=== PATIENT | female | born 1950 | race Caucasian/White ===

== ENCOUNTER 2019-06-23 13:20 | Outpatient (CLI) | payer OTHER, SELFPAY ==
--- NOTE | ~2019-06-23 | MR_ITS ---
EXAMINATION: MR cervical spine wo con EXAM DATE: 06/23/2019 15:07 INDICATION: Cervicalgia. Neck pain. TECHNIQUE: Multi-sequential, multiplanar MR images of the cervical spine were obtained without contra st. Axial T2, axial T2 MERGE sequence. Sagittal T1, T2, T2 fat saturation images also obtained. Th ere is no prior study for comparison. FINDINGS: There is moderate to severe loss of the C5-6 and 6-7 disc heights, moderate at C4-5 and mi ld to moderate at C3-4 and C7-T1. There is mild reversal of the normal cervical lordosis which may be positional or spasm. There is about 2 mm retrolisthesis C5 on C6, 2 mm anterolisthesis C3 on C4. Th e spinal cord signal intensity and intrinsic morphology is normal. Cervicomedullary junction is david l in appearance. Paraspinal soft tissue is unremarkable. Level by level evaluation: C2-C3: Disc does not extend beyond the endplate margin. Uncovertebral joint arthropathy: Mild to moderate right. Facet joint arthropathy: None. Neural foraminal stenosis: No stenosis. Central canal stenosis: No stenosis. C3-C4: There is a minimal diffuse disc bulge. Uncovertebral joint arthropathy: Mild bilateral. Facet joint arthropathy: Moderate bilateral. Neural foraminal stenosis: No stenosis. Central canal stenosis: No stenosis. C4-C5: There is a minimal diffuse disc bulge. Uncovertebral joint arthropathy: Mild bilateral. Facet joint arthropathy: Moderate bilateral. Neural foraminal stenosis: Mild left. Central canal stenosis: No stenosis. C5-C6: There is a mild diffuse disc bulge. Uncovertebral joint arthropathy: Moderate bilateral. Facet joint arthropathy: Mild to moderate bilateral. Neural foraminal stenosis: Moderate to severe left, moderate right. Central canal stenosis: Mild. C6-C7: There is a mild diffuse disc bulge. Uncovertebral joint arthropathy: Mild to moderate bilateral. Facet joint arthropathy: Mild bilateral. Neural foraminal stenosis: Mild to moderate bilateral. Central canal stenosis: Mild. C7-T1: Disc does not extend beyond the endplate margin. Uncovertebral joint arthropathy: Mild left. Facet joint arthropathy: Mild to moderate bilateral. Neural foraminal stenosis: No stenosis. Central canal stenosis: No stenosis. IMPRESSION: 1. Overall moderate cervical spondylosis with the C5-6 neural foramen most narrowed on exam. Reviewed, dictated and finalized at location A. IMPRESSION: 1. Overall moderate cervical spondylosis with the C5-6 neural foramen most rima rowed on exam.
== END 2019-06-23 13:21 | disposition home or self-care (01) ==
PROVIDERS: PCP Family Medicine Adolescent Medicine; Visit Provider Family Medicine Adolescent Medicine
DX: M47.812 Spondylosis without myelopathy or radiculopathy, cervical region (principal)
CPT/HCPCS: 72141

== ENCOUNTER 2019-08-15 10:50 | Outpatient (CLI) | payer OTHER, SELFPAY ==
--- NOTE | ~2019-08-15 | CT_ITS ---
EXAMINATION: CT abdomen pelvis w con DATE: 08/15/2019 15:57 INDICATION: Left lower quadrant pain TECHNIQUE: Computed tomography (CT) of the abdomen and pelvis was performed with 100 cc Omnipaque 350 intravenous contrast. The dose-length product was 262.22 mGy-cm. Automated exposure control and iter ative reconstruction technique were employed. COMPARISON: Comparison to multiple prior studies sequentially, with oldest reviewed study dated 04/29. FINDINGS: Lung bases unremarkable. Heart size normal. No significant pleural or pericardial effusion. No significant vascular abnormality. No lymphadenopathy. Stable multiple hypodense masses of the spl een without significant change. Status post cholecystectomy. Small subcentimeter hypodensity right he patic lobe, most likely cysts. The pancreas, adrenal glands and kidneys are unremarkable. Colonic div erticulosis without diverticulitis. No bowel obstruction. No significant vascular abnormality. No herve e air or free fluid. No evidence for diverticulitis. There are dilated parametrial vessels, suspiciou s for pelvic congestion syndrome. IMPRESSION: 1. Dilated parametrial vessels, suspicious for pelvic congestion syndrome. 2: Multiple stable hypodense masses of the spleen without significant change dating back to 04/29/2015 , likely benign. Reviewed, dictated and finalized at location A. IMPRESSION: 1. Dilated parametrial vessels, suspicious for pelvic congestion syndrome. 2: Multiple stable hypodense masses of the spleen without significant change da ting back to 04/29/2015, likely benign.
[2019-08-15 11:14] LABS: Hematocrit 44.3 % (37.0-47.0); Hemoglobin 14.5 g/dL (12.0-15.0); Mean Corpuscular HGB Conc 32.7 g/dl (32-36); Mean Corpuscular Hemoglobin 30.2 pg (26-34); Mean Corpuscular Volume 92.3 fl (80-100); Mean Platelet Volume 8.5 fl (7.4-10.4); Platelet Count Result 318 k/mm3 (150-375); Red Cell Distribution Width 12.6 % (11.5-14.5); White Blood Count 9.7 K/mm3 (4.5-10.0)
[2019-08-15 11:30] LABS: Alanine Aminotransferase 33 U/L (4-35); Albumin Level 4.6 g/dL (3.5-5.1); Alkaline Phosphatase 76 U/L (38-126); Aspartate Amino Transferase 35 U/L (14-36); Bilirubin,Total 0.6 mg/dL (0.2-1.3); Blood Urea Nitrogen 11 mg/dL (7-17); Calcium 9.4 mg/dL (8.4-10.2); Carbon Dioxide 29 mmol/L (22-30); Chloride 102 mmol/L (98-107); Estimated Glomerular Filt Rate > 60; Glucose 113 mg/dL (65-105); Potassium 4.1 mmol/L (3.4-5.0); Sodium 138 mmol/L (137-145)
== END 2019-08-15 10:51 | disposition home or self-care (01) ==
PROVIDERS: PCP Family Medicine Adolescent Medicine; Visit Provider Internal Medicine Gastroenterology
DX: R10.13 Epigastric pain (principal); D73.9 Disease of spleen, unspecified; R93.5 Abnormal findings on diagnostic imaging of other abdominal regions, including retroperitoneum
CPT/HCPCS: 36415; 74177; 80053; 85027; Q9967

== ENCOUNTER 2020-04-03 14:48 | Outpatient (CLI) | payer OTHER, SELFPAY ==
--- NOTE | ~2020-04-03 | MM_ITS ---
EXAMINATION: MM screening [facility] BI w eryn HISTORY: Screening mammogram TECHNIQUE: Craniocaudal and mediolateral oblique 3-D tomosynthesis images were obtained and synthetic 2-D images were generated. CAD analysis was submitted and interpreted. COMPARISON: 02/22/2019, 02/20/2018, 02/17/2017 BREAST PARENCHYMAL COMPOSITION: There are scattered areas of fibroglandular density. FINDINGS: There is cyst of the lower inner right breast. There is no evidence of suspicious mass, pito cification, or architectural distortion to suggest malignancy in either breast. There has been no juan picious interval change. IMPRESSION: 1. No mammographic evidence of malignancy. 2. Recommend routine screening mammography in one year. BI-RADS Category 2: Benign finding(s). Reviewed, dictated and finalized at location A. METRY TECHNICIAN
== END 2020-04-03 14:49 | disposition home or self-care (01) ==
LOC: ANHIMG 14:55
PROVIDERS: PCP Family Medicine Adolescent Medicine; Visit Provider Family Medicine Adolescent Medicine
DX: Z12.31 Encounter for screening mammogram for malignant neoplasm of breast (principal)
CPT/HCPCS: 77063; 77067

== ENCOUNTER → 2020-06-29 03:08 | Outpatient (CLI) | payer OTHER, SELFPAY ==
[2020-06-29 21:05] LABS: SARS-CoV-2 RNA PCR Negative
== END ==
PROVIDERS: PCP Family Medicine Adolescent Medicine; Visit Provider Internal Medicine Gastroenterology
DX: Z01.812 Encounter for preprocedural laboratory examination (principal); Z20.822 Contact with and (suspected) exposure to COVID-19
CPT/HCPCS: C9803; U0003; U0005

== ENCOUNTER 2020-07-02 01:33 | Day surgery (SDC) | payer OTHER, SELFPAY ==
[2020-06-29 09:06] VITALS: BMI 22.6
[2020-07-02 11:20] VITALS: BP 124/69; PULSE 77; RESP 16; TEMP 36.5; O2SAT 95
[2020-07-02] MEDS: LACTATED RINGERS 1,000 ML 150 ML IV CONT (11:33)
--- NOTE | 2020-07-02 12:42 | WPDANESEPPF ---
Anes - Initial Pre Proc Eval Procedure: Operation Date: 07/02/20 12:45 Proposed Procedures p Esophagogastroduodenoscopy - Ken Clement MD Date/Time: 07/02/20 12:42 Surgeon: Ken Clement MD Pre Op Diagnosis: Epigastric pain Patient Data Age: 69 Gender: F Height: 5 ft 4 in Weight: 59.7 kg Last Vital Signs Temp 97.7 F 07/02/20 11:20 Pulse 77 07/02/20 11:20 Resp 16 07/02/20 11:20 BP 124/69 07/02/20 11:20 Pulse Ox 95 07/02/20 11:20 Allergies Allergy/AdvReac Type Severity Reaction Status Date / Time No Known Drug Allergies Allergy Unknown Unknown Verified 07/02/20 11:19 BEE STING Allergy Severe SHOCK Uncoded 06/12/20 13:11 Home Medications Medication Instructions Recorded Confirmed Type atorvastatin 20 mg tablet 20 mg PO DAILY 06/12/20 06/29/20 History sucralfate 1 gram tablet 1 g PO TID 30 Days #90 tablet 06/12/20 06/29/20 Rx zolpidem 5 mg tablet 5 mg PO QHS PRN 06/12/20 06/29/20 History hyoscyamine sulfate 0.375 mg PO DAILY 06/29/20 06/29/20 History pantoprazole 40 mg PO DAILY 06/29/20 06/29/20 History Patient hx anesthesia problems: none Family hx anesthesia problems: none PMFSH Past Medical History Medical History (Updated 07/02/20 @ 12:35 by Robert Aragon MD) Hyperlipidemia Family History Family History Mother Carcinoma of colon Family history of malignant neoplasm Father Asthma Social History Social History (Updated 06/12/20 @ 13:11 by Analia Ca CMA) Smoking status: Never smoker Alcohol intake: never Substance use: never Substance use type: does not use Living arrangements: with family Gender identity (if verbalized by the patient): Female Spiritual care concerns: No Anes - Eval Final PreProcedure Day of Procedure 07/02/20 12:42 Patient weight: normal Heart: regular rate and rhythm Lungs: clear to auscultation Airway: Mallampati scale class II Neurological: alert and oriented Last oral intake: >/= 8 hours ASA classification: II Emergent: no Anesthetic plan: proceed Anesthesia type and monitoring: general GIVS and standard monitoring Informed Consent: The patient's anesthetic plan and its attendant risks and benefits were discussed with the patient/family/POA. Questions were solicited and answers provided to the satisfaction of the patient/family/POA.
--- NOTE | 2020-07-02 13:14 | WPDHPUPDATE1 ---
History and Physical Update Update Date/Time: 07/02/20 13:14 History and Physical has been reviewed, including an updated exam of the patient. There are NO changes in the patient's condition. Risks, benefits, and alternatives have been discussed and questions answered. Patient agrees to proceed with procedure.
[2020-07-02 13:24] VITALS: BP 77/43; PULSE 64; RESP 18; O2SAT 96
[2020-07-02 13:30] VITALS: BP 92/57; PULSE 72; RESP 18; O2SAT 96
[2020-07-02 13:34] VITALS: BP 100/59; PULSE 72; RESP 18; O2SAT 100
[2020-07-02 13:44] VITALS: BP 100/60; PULSE 64; RESP 18; O2SAT 100
== END 2020-07-02 13:55 | disposition home or self-care (01) ==
PROVIDERS: PCP Family Medicine Adolescent Medicine; Visit Provider Internal Medicine Gastroenterology
PROC: 0DJ08ZZ Inspection of Upper Intestinal Tract, Via Natural or Artificial Opening Endoscopic (ICD-10-PCS; CPT 43235; principal; 2020-07-02 12:45)
DX: K21.9 Gastro-esophageal reflux disease without esophagitis (principal); K29.50 Unspecified chronic gastritis without bleeding; E78.5 Hyperlipidemia, unspecified
CPT/HCPCS: 43239; 88305; C9803; J2704; J7120; U0003; U0005

== ENCOUNTER → 2020-08-28 03:51 | Outpatient (CLI) | payer OTHER, SELFPAY ==
[2020-08-28 19:36] LABS: SARS-CoV-2 RNA PCR Negative
== END ==
PROVIDERS: PCP Family Medicine Adolescent Medicine; Visit Provider Internal Medicine Gastroenterology
DX: Z20.822 Contact with and (suspected) exposure to COVID-19 (principal)
CPT/HCPCS: C9803; U0003; U0005

== ENCOUNTER 2020-08-31 01:46 | Day surgery (SDC) | payer OTHER, SELFPAY ==
[2020-08-18 13:49] VITALS: BMI 22.3
[2020-08-31 11:39] VITALS: BP 126/78; PULSE 84; RESP 18; TEMP 36.4; O2SAT 98
[2020-08-31] MEDS: LACTATED RINGERS 1,000 ML 150 ML IV CONT (11:46)
--- NOTE | 2020-08-31 11:53 | WPDANESEPPF ---
Anes - Initial Pre Proc Eval Procedure: Operation Date: 08/31/20 13:00 Proposed Procedures p Screening Colonoscopy - Ken Clement MD Date/Time: 08/31/20 11:53 Surgeon: Ken Clement MD Pre Op Diagnosis: family hx of colon ca Patient Data Age: 69 Gender: F Height: 5 ft 4 in Weight: 58.8 kg Last Vital Signs Temp 97.6 F 08/31/20 11:39 Pulse 84 08/31/20 11:39 Resp 18 08/31/20 11:39 BP 126/78 08/31/20 11:39 Pulse Ox 98 08/31/20 11:39 Allergies Allergy/AdvReac Type Severity Reaction Status Date / Time No Known Drug Allergies Allergy Unknown Unknown Verified 08/31/20 11:36 BEE STING Allergy Severe SHOCK Uncoded 08/31/20 11:36 Home Medications Medication Instructions Recorded Confirmed Type atorvastatin 20 mg tablet 20 mg PO DAILY 06/12/20 08/31/20 History zolpidem 5 mg tablet 5 mg PO QHS PRN 06/12/20 08/31/20 History calcium carbonate 600 mg calcium 600 mg PO BID 08/06/20 08/31/20 History (1,500 mg) tablet hyoscyamine sulfate 0.375 mg 0.375 mg PO DAILY PRN 08/06/20 08/31/20 History tablet,extended release,12 hr pantoprazole 20 mg PO DAILY 08/18/20 08/31/20 History Patient hx anesthesia problems: none Family hx anesthesia problems: none PMFSH Past Medical History Medical History (Updated 08/06/20 @ 10:18 by Ken Clement MD) Family history of colon cancer Gastritis Hyperlipidemia LLQ pain Family History Family History Mother Carcinoma of colon Family history of malignant neoplasm Father Asthma Social History Social History Smoking status: Never smoker Alcohol intake: never Alcohol use details: rarely Substance use: never Substance use type: does not use Living arrangements: with family Gender identity (if verbalized by the patient): Female Spiritual care concerns: No Anes - Eval Final PreProcedure Day of Procedure 08/31/20 11:53 Patient weight: normal Heart: regular rate and rhythm Lungs: clear to auscultation Airway: Mallampati scale class II Neurological: alert and oriented Last oral intake: >/= 8 hours ASA classification: II Emergent: no Anesthetic plan: proceed Anesthesia type and monitoring: general GIVS and standard monitoring Informed Consent: The patient's anesthetic plan and its attendant risks and benefits were discussed with the patient/family/POA. Questions were solicited and answers provided to the satisfaction of the patient/family/POA.
--- NOTE | 2020-08-31 12:54 | WPDHPUPDATE1 ---
History and Physical Update Update Date/Time: 08/31/20 12:54 History and Physical has been reviewed, including an updated exam of the patient. There are NO changes in the patient's condition. Risks, benefits, and alternatives have been discussed and questions answered. Patient agrees to proceed with procedure.
[2020-08-31 13:15] VITALS: BP 87/48; PULSE 67; RESP 18; O2SAT 98
[2020-08-31 13:25] VITALS: BP 85/52; PULSE 69; RESP 18; O2SAT 98
[2020-08-31 13:35] VITALS: BP 90/52; PULSE 70; RESP 18; O2SAT 98
== END 2020-08-31 13:55 | disposition home or self-care (01) ==
PROVIDERS: PCP Family Medicine Adolescent Medicine; Visit Provider Internal Medicine Gastroenterology
PROC: 0DJD8ZZ Inspection of Lower Intestinal Tract, Via Natural or Artificial Opening Endoscopic (ICD-10-PCS; CPT 45378; principal; 2020-08-31 13:00)
DX: R10.32 Left lower quadrant pain (principal); K57.30 Diverticulosis of large intestine without perforation or abscess without bleeding; E78.5 Hyperlipidemia, unspecified; K21.9 Gastro-esophageal reflux disease without esophagitis; K29.70 Gastritis, unspecified, without bleeding; Z80.0 Family history of malignant neoplasm of digestive organs
CPT/HCPCS: 45378; J2704; J7120

== ENCOUNTER 2021-01-13 13:39 | Outpatient (CLI) | payer OTHER, SELFPAY ==
--- NOTE | ~2021-01-13 | XR_ITS ---
XR chest 2V DATE: 01/13/2021 14:16 INDICATION: Cough, congestion TECHNIQUE: PA and lateral views COMPARISON: 01/07/2016 CT chest 11/11/2015 2 view chest FINDINGS: Normal heart size. No hilar or mediastinal enlargement. No pulmonary infiltrate or consolidation, pleural effusion or pulmonary vascular congestion or pneumo thorax. Surgical clips, right upper quadrant, consistent with cholecystectomy. Included skeletal structures are unremarkable other than minimal thoracic scoliosis and osteopenia. IMPRESSION: No active cardiac pulmonary disease Reviewed, dictated and finalized at location B.
== END 2021-01-13 13:40 | disposition home or self-care (01) ==
LOC: ANHIMG 13:51
PROVIDERS: PCP Family Medicine Adolescent Medicine; Visit Provider Physician Assistant
DX: J98.8 Other specified respiratory disorders (principal); M41.9 Scoliosis, unspecified
CPT/HCPCS: 71046

== ENCOUNTER 2021-04-07 09:46 | Outpatient (CLI) | payer OTHER, SELFPAY ==
--- NOTE | ~2021-04-07 | MM_ITS ---
EXAMINATION: MM screening [facility] BI w eryn HISTORY: Screening mammogram TECHNIQUE: Craniocaudal and mediolateral oblique 3-D tomosynthesis images were obtained and synthetic 2-D images were generated. CAD analysis was submitted and interpreted. COMPARISON: 04/03/2020, 02/22/2019, 02/20/2018 BREAST PARENCHYMAL COMPOSITION: There are scattered areas of fibroglandular density. FINDINGS: A cyst of the lower right breast is again noted. There is no evidence of suspicious mass, c alcification, or architectural distortion to suggest malignancy in either breast. There has been no s uspicious interval change. IMPRESSION: 1. No mammographic evidence of malignancy. 2. Recommend routine screening mammography in one year. BI-RADS Category 2: Benign finding(s). Reviewed, dictated and finalized at location A. ITY ANALYST
--- NOTE | ~2021-04-07 | DEXA_ITS ---
Bone Density Report Name: CASIMIRO VASQUEZ Age: 70 Sex: Female Ethnicity: White Date of : 1950 Indication: osteopenia; height loss; cancer;postmenopausal Referring Provider: Srinivasa Macdonald Study: Bone densitometry was performed. Exam Date: April 07, 2021 Accession number: [id number] Bone Density: Region BMD T-score Z-score Classification AP Spine (L1-L4) 0.850 -1.8 0.3 Osteopenia Femoral Neck (Left) 0.702 -1.3 0.5 Osteopenia Total Hip (Left) 0.904 -0.3 1.2 Normal Total Hip Bilateral Avg 0.857 -0.7 0.8 Normal Femoral Neck (Right) 0.698 -1.4 0.5 Osteopenia Total Hip (Right) 0.809 -1.1 0.4 Osteopenia World Health Organization criteria for BMD impression classify patients as: Normal (T-score at or above -1.0), Osteopenia (T-score between -1.0 and -2.5), or Osteoporosis (T-score at or below -2.5). 10-year Fracture Risk(1): Major Osteoporotic Fracture 9.2% Hip Fracture 1.2% Reported Risk Factors: [place] (), Neck BMD=0.698, BMI=23.5 (1) FRAX(R) Version 3.08. Fracture probability calculated for an untreated patient. Fracture probability may be lower if the patient has received treatment. Previous Exams: Region Exam Age BMD T-score BMD Change BMD Change Date g/cm2 vs Baseline vs Previous AP Spine(L1-L4) 04/07/2021 70 0.850 -1.8 -0.149(-14.9%) -0.035(-3.9%)* 02/20/2018 67 0.885 -1.5 -0.115(-11.5%) -0.014(-1.6%) 02/02/2015 64 0.899 -1.3 -0.100(-10.0%) -0.019(-2.1%)# 08/29/2012 61 0.918 -1.2 -0.081(-8.2%)# -0.042(-4.4%)# 08/11/2010 59 0.960 -0.8 -0.039(-4.0%)* 0.030(3.2%)* 07/18/2008 57 0.930 -1.1 -0.069(-6.9%)* -0.069(-6.9%)* 05/04/2005 54 0.999 -0.4 Total Hip(Left) 04/07/2021 70 0.904 -0.3 -0.075(-7.7%)# 0.029(3.3%)* 02/20/2018 67 0.875 -0.5 -0.104(-10.6%) -0.061(-6.5%)* 02/02/2015 64 0.936 0.0 -0.043(-4.4%)# 0.014(1.5%)# 08/29/2012 61 0.923 -0.2 -0.056(-5.8%)# -0.032(-3.4%)# 08/11/2010 59 0.955 0.1 -0.024(-2.5%) 0.005(0.5%) 07/18/2008 57 0.950 0.1 -0.029(-3.0%)* -0.029(-3.0%)* 05/04/2005 54 0.979 0.3 Total Hip(Right) 04/07/2021 70 0.809 -1.1 -0.163(-16.8%) -0.071(-8.1%)* 02/20/2018 67 0.881 -0.5 -0.092(-9.4%)# -0.038(-4.1%)* 02/02/2015 64 0.919 -0.2 -0.054(-5.5%)# 0.001(0.1%)# 08/29/2012 61 0.918 -0.2 -0.055(-5.6%)# -0.003(-0.3%)# 08/11/2010 59 0.921 -0.2 -0.052(-5.3%)* -0.018(-1.9%) 07/18/2008 57 0.939 0.0 -0.034(-3.5%)* -0.034(-3.5%)* 05/04/2005 54 0.973 0.3 *Denotes significance
== END 2021-04-07 09:47 | disposition home or self-care (01) ==
PROVIDERS: PCP Family Medicine Adolescent Medicine; Visit Provider Family Medicine Adolescent Medicine
DX: Z12.31 Encounter for screening mammogram for malignant neoplasm of breast (principal); Z78.0 Asymptomatic menopausal state; M85.89 Other specified disorders of bone density and structure, multiple sites
CPT/HCPCS: 77063; 77067; 77080

== ENCOUNTER 2022-04-27 10:00 | Outpatient (CLI) | payer OTHER, SELFPAY ==
--- NOTE | ~2022-04-27 | MM_ITS ---
EXAMINATION: MM screening [facility] BI w eryn HISTORY: Screening mammogram TECHNIQUE: Craniocaudal and mediolateral oblique 3-D tomosynthesis images were obtained and synthetic 2-D images were generated. CAD analysis was submitted and interpreted. COMPARISON: , 04/03/2020, 02/22/2019 bilateral screening mammogram examinations 02/04/2015 diagnostic right mammogram and right breast ultrasound examination: 1.3 cm cyst at 5:00 3. 5 cm from nipple BREAST PARENCHYMAL COMPOSITION: There are scattered areas of fibroglandular density. FINDINGS: Approximately 9 mm circular opacity and contiguous approximately 8.9 x 17 mm circumscribed opacity are noted in the lower inner right breast, stable in appearance since 04/07/2021. There is no evidence of suspicious mass, calcification, or architectural distortion to suggest malignancy in eit her breast. There has been no suspicious interval change. IMPRESSION: 1. No mammographic evidence of malignancy. 2. Recommend routine screening mammography in one year. BI-RADS Category 2: Benign finding(s). Reviewed, dictated and finalized at location A. HER UP
== END 2022-04-27 10:01 | disposition home or self-care (01) ==
LOC: ANHIMG 10:02
PROVIDERS: PCP Family Medicine Adolescent Medicine; Visit Provider Family Medicine Adolescent Medicine
DX: Z12.31 Encounter for screening mammogram for malignant neoplasm of breast (principal)
CPT/HCPCS: 77063; 77067

== ENCOUNTER 2022-10-05 10:03 | Outpatient (CLI) | payer OTHER, SELFPAY ==
--- NOTE | 2022-10-05 10:12 | EST_ITS ---
Patient Info Name: Catia Carroll Age: 71 years : 1950 Gender: Female Ht: 64 in Wt: 140 lbs BSA: 1.70 m2 HR: 65 bpm BP: 130 / 76 mmHg Heart Rhythm: Sinus Rhythm Exam Date: 10/05/2022 10:21 AM Exam Location: [facility] Stress Patient Status: Outpatient Admit Date: 10/05/2022 Staff Ordering Physician: Collette Carter APRN Attending Provider: Collette Carter APRN Exercise Technologist: Ary Polanco CT Exercise Physician: Raoul Lawrence DO Exam Type: CA stress test treadmill Study Info Indications R07.89 - Other chest pain A treadmill exercise stress test was performed. Summary 1. 1. Negative Abdirahman exercise stress test for ischemic ST changes by ECG criteria. 2. 2. Good functional capacity, achieving 10 METs of workload. 3. 3. Appropriate HR response to exercise. 4. 4. Appropriate HR recovery at 1 minute post exercise. 5. 5. No imaging with stress testing. 6. 6. Patient informed of the above results. Protocol: Abdirahman Stress ECG Details Stage: REST Duration (min): 3 min : 56 sec Speed (mph): 0.0 Grade (%): 0 HR (bpm): 67 SBP (mmHg): 130 DBP (mmHg): 76 METS: --- Stage: REST Duration (min): 11 min : 46 sec Speed (mph): 0.0 Grade (%): 0 HR (bpm): 77 SBP (mmHg): 130 DBP (mmHg): 76 METS: --- Stage: STAGE 1 Duration (min): 1 min : 0 sec Speed (mph): 1.7 Grade (%): 10 HR (bpm): 84 SBP (mmHg): 130 DBP (mmHg): 76 METS: --- Stage: STAGE 1 Duration (min): 2 min : 0 sec Speed (mph): 1.7 Grade (%): 10 HR (bpm): 89 SBP (mmHg): 130 DBP (mmHg): 76 METS: --- Stage: STAGE 1 Duration (min): 3 min : 0 sec Speed (mph): 1.7 Grade (%): 10 HR (bpm): 97 SBP (mmHg): 162 DBP (mmHg): 84 METS: --- Stage: STAGE 2 Duration (min): 1 min : 0 sec Speed (mph): 2.5 Grade (%): 12 HR (bpm): 102 SBP (mmHg): 162 DBP (mmHg): 84 METS: --- Stage: STAGE 2 Duration (min): 2 min : 0 sec Speed (mph): 2.5 Grade (%): 12 HR (bpm): 103 SBP (mmHg): 167 DBP (mmHg): 78 METS: --- Stage: STAGE 2 Duration (min): 3 min : 0 sec Speed (mph): 2.5 Grade (%): 12 HR (bpm): 108 SBP (mmHg): 167 DBP (mmHg): 78 METS: --- Stage: STAGE 3 Duration (min): 1 min : 0 sec Speed (mph): 3.4 Grade (%): 14 HR (bpm): 117 SBP (mmHg): 166 DBP (mmHg): 79 METS: --- Stage: STAGE 3 Duration (min): 2 min : 0 sec Speed (mph): 3.4 Grade (%): 14 HR (bpm): 123 SBP (mmHg): 166 DBP (mmHg): 79 METS: --- Stage: STAGE 3 Duration (min): 3 min : 0 sec Speed (mph): 3.4 Grade (%): 14 HR (bpm): 126 SBP (mmHg): 176 DBP (mmHg): 81 METS: --- Stage: STAGE 4 Duration (min): 0 min : 2 sec Speed (mph): 4.2 Grade (%): 16 HR (bpm): 127 SBP (mmHg): 176 DBP (mmHg): 81 METS: --- Stage: RECOVERY Duration (min): 0 min : 57 sec Speed (mph): 0.0 Grade (%): 0 HR (bpm): 109 SBP (mmHg): 176 DBP (mmHg):
== END 2022-10-05 10:04 | disposition home or self-care (01) ==
LOC: ANHCARD 10:05
PROVIDERS: PCP Family Medicine Adolescent Medicine; Visit Provider Nurse Practitioner Family
DX: R07.9 Chest pain, unspecified (principal)
CPT/HCPCS: 93017

== ENCOUNTER 2022-11-13 16:22 | Emergency (ER) | payer OTHER, SELFPAY ==
--- NOTE | ~2022-11-13 | XR_ITS ---
EXAM: XR foot RT 2V DATE: 11/13/2022 17:12 HISTORY: red swollen rt mtp jt area 1st toe ? etiology . COMPARISON: None available. FINDINGS: Decreased mineralization. No fracture or dislocation. No lytic or blastic lesion. Mild sca ttered degenerative change. Plantar enthesopathy. No erosion or periosteal change. Soft tissue swelli ng over the first MTP joint. No radiopaque foreign body. IMPRESSION: No acute osseous finding in the right foot. Reviewed, dictated and finalized at location K.
[2022-11-13 16:33] VITALS: BP 139/64; PULSE 74; RESP 16; TEMP 37.2; O2SAT 99
[2022-11-13] MEDS: predniSONE 20 MG TABLET 50 MG PO (17:48)
--- NOTE | 2022-11-13 17:52 | ED.GENADULT ---
HPI - General Adult General Chief complaint: Extremity Injury, Lower Stated complaint: left foot pain Source: patient Mode of arrival: ambulatory Limitations: no limitations History of Present Illness HPI narrative: Patient presents for evaluation of redness, swelling and pain to the right foot. Symptom onset 4 days ago. She was walking for extended periods of time when she noted that her right foot was bothering her. She then noted redness to the MTP joint of the right great toe. She currently rates her pain 7/10 in severity, described as sharp and throbbing. No paresthesias. She tried taking ibuprofen for symptoms. She is not diabetic. No hx of gout. No fever, chills, nausea, vomiting, drainage from the affected area. Related Data Home Medications Medication Instructions Recorded Confirmed calcium carbonate 600 mg calcium 600 mg PO BID 08/06/20 11/13/22 (1,500 mg) tablet (Calcium) Allergies Allergy/AdvReac Type Severity Reaction Status Date / Time clarithromycin AdvReac Unknown GI upset Verified 11/13/22 16:32 tramadol AdvReac Unknown Unknown Verified 11/13/22 16:32 BEE STING Allergy Severe SHOCK Uncoded 11/13/22 16:32 macrobid AdvReac Intermediate Diarrhea Uncoded 11/13/22 16:32 Review of Systems Review of Systems: CONSTITUTIONAL: Denies fever, chills, or sweats. EYES: Denies visual changes, redness, or discharge. ENT: Denies rhinorrhea, congestion, sore throat, or otalgia. CARDIOVASCULAR: Denies chest pain, palpitations, or edema. RESPIRATORY: Denies cough or dyspnea. GASTROINTESTINAL: Denies abdominal pain, nausea, vomiting, or diarrhea. GENITOURINARY: Denies dysuria or hematuria. SKIN: Reports redness to the right foot.Denies rash or itching. MUSCULOSKELETAL: Reports pain in the right foot. NEUROLOGIC: Denies headache, numbness, dizziness, or weakness. PSYCHIATRIC: Denies anxiety or depression. [facility] Past Medical History Medical History Gout History of melanoma 2006 Hyperlipidemia Normal colonoscopy 09/04, Repeat 09/09 Surgical History Surgical History H/O repair of rotator cuff Right History of cholecystectomy 2015 History of esophagogastroduodenoscopy (EGD) 07/05 Gastritis Family History Family History Mother Carcinoma of colon Family history of malignant neoplasm Father Asthma Social History Social History Smoking status: Never smoker Alcohol intake: never Alcohol use details: rarely Substance use: never Substance use type: does not use Living arrangements: with family Occupation/Education: retired Gender identity (if verbalized by the patient): Female Sexual Orientation (if Verbalized by the Patient): Straight or Heterosexual Spiritual care concerns: No Agree to blood products: Yes Exam Narrative: GENERAL: Well-appearing, well-nourished, and in no acute distress. HEAD: Normocephalic, atraumatic. EYES: PERRLA and EOMI. ENT: Nares clear, no rhinorrhea or epistaxis. Mucous membranes moist. Oropharynx without tonsillar hypertrophy exudate or other lesions. Bilateral TMs pearly whyte nonbulging NECK: Supple. No adenopathy or masses. No carotid bruits or JVD CHEST: Clear to auscultation. No respiratory distress. No wheezes rales or rhonchi HEART: Regular rate and rhythm. No murmur heard. Normal peripheral pulses. ABDOMEN: Soft, nontender, nondistended, normal active bowel sounds. EXTREMITIES: there is tenderness to the MTP joint of the right great toe. No loss of range of motion. SKIN: Erythema noted to the lateral aspect of the MTP joint of the right great toe. Warm, dry, no rash. NEURO: No focal deficits. Alert and oriented x3. PSYCH: Normal mood and affect. Course Course Emergen
== END 2022-11-13 17:58 | disposition home or self-care (01) ==
PROVIDERS: Emergency Provider Nurse Practitioner; PCP Family Medicine Adolescent Medicine
DX: M10.9 Gout, unspecified (principal); E78.5 Hyperlipidemia, unspecified; Z85.820 Personal history of malignant melanoma of skin
CPT/HCPCS: 73620; 99213; G0463; J7512

== ENCOUNTER 2023-05-19 09:07 | Outpatient (CLI) | payer OTHER, SELFPAY ==
--- NOTE | ~2023-05-19 | DEXA_ITS ---
Bone Density Report Name: CASIMIRO VASQUEZ Age: 72 Sex: Female Ethnicity: White Date of : 1950 Indication: postmenopausal; screening for osteoporosis; Referring Provider: NABOR LAGOS Study: Bone densitometry was performed. Exam Date: May 19, 2023 Accession number: [id number] Bone Density: Region BMD T-score Z-score Classification AP Spine(L1-L4) 0.878 -1.5 0.7 Osteopenia Femoral Neck (Left) 0.762 -0.8 1.2 Normal Total Hip (Left) 0.861 -0.7 1.0 Normal Femoral Neck (Right) 0.756 -0.8 1.1 Normal Total Hip (Right) 0.865 -0.6 1.0 Normal Total Hip Mean 0.863 -0.7 1.0 Normal World Health Organization criteria for BMD impression classify patients as: Normal (T-score at or above -1.0), Osteopenia (T-score between -1.0 and -2.5), or Osteoporosis (T-score at or below -2.5). 10-year Fracture Risk(1): Major Osteoporotic Fracture 8.7% Hip Fracture 1.0% Reported Risk Factors: [place] (), Neck BMD=0.762, BMI=23.8 (1) FRAX(R) Version 3.08. Fracture probability calculated for an untreated patient. Fracture probability may be lower if the patient has received treatment. Clinical Information Provided by Patient: Has used the following medications: Vitamin D, Calcium Patient maximum height was 65.0 Drinks caffeinated beverages Onset of menses at age 13 Number of children 2 Impression: The patient has low bone mass, based on the Total Spine T-score. The patient has an estimated ten-year risk of hip fracture of 1% and an estimated ten-year risk of major fracture of 8.7%, based on the WHO FRAX algorithm. Discussion: BONE DENSITY IS LOW AT ONE OR MORE SKELETAL SITES. This patient's lowest T-score is low at one or more skeletal sites. It meets the World Health Organization's (WHO) criteria for ?low bone mass? (T-score between -1.0 and -2.5). The patient's 10-year risk of fracture as calculated by FRAX is less than the threshold where pharmacological therapy is recommended by the National Osteoporosis Foundation (NOF). However, all treatment decisions require clinical judgment and consideration of individual patient factors, including patient preferences, comorbidities, previous drug use, risk factors not captured in the FRAX model (e.g., frailty, falls, vitamin D deficiency, increased bone turnover, interval significant decline in bone density) and possible under or overestimation of fracture risk by FRAX. The patient should follow a healthful lifestyle (good nutrition with adequate calcium and vitamin D, and appropriate weight-bearing exercise). Follow-Up: Consider repeating this study in 2 to 3 years to reassess this patient's status, or sooner if there is some new clinical indication. Reported by: DEIDRA on 05/19/2023 9:31:00 AM.
== END 2023-05-19 09:08 | disposition home or self-care (01) ==
LOC: ANHIMG 09:09
PROVIDERS: PCP Family Medicine Adolescent Medicine; Visit Provider Nurse Practitioner Family
DX: M85.88 Other specified disorders of bone density and structure, other site (principal)
CPT/HCPCS: 77080

== ENCOUNTER 2023-05-29 14:09 | Outpatient (CLI) | payer OTHER, SELFPAY ==
--- NOTE | ~2023-05-29 | MM_ITS ---
EXAMINATION: MM screening [facility] BI w eryn HISTORY: Screening mammogram TECHNIQUE: Craniocaudal and mediolateral oblique 3-D tomosynthesis images were obtained and synthetic 2-D images were generated. CAD analysis was submitted and interpreted. COMPARISON: 04/27/2022, 04/07/2021, 04/03/2020 BREAST PARENCHYMAL COMPOSITION: There are scattered areas of fibroglandular density. FINDINGS: A chronic waxing and waning cyst of the lower inner right breast is noted. No suspicious ma ss, calcification, or architectural distortion are identified in either breast to suggest malignancy. There has been no suspicious interval change. IMPRESSION: 1. No mammographic evidence of malignancy. 2. Recommend routine screening mammography in one year. BI-RADS Category 2: Benign finding(s). Reviewed, dictated and finalized at location A. DRESSER
== END 2023-05-29 14:10 | disposition home or self-care (01) ==
LOC: ANHIMG 14:12
PROVIDERS: PCP Family Medicine Adolescent Medicine; Visit Provider Nurse Practitioner Family
DX: Z12.31 Encounter for screening mammogram for malignant neoplasm of breast (principal)
CPT/HCPCS: 77063; 77067

== ENCOUNTER 2023-06-15 16:13 | Outpatient (CLI) | payer OTHER, SELFPAY ==
--- NOTE | ~2023-06-15 | CT_ITS ---
EXAMINATION: CT abdomen pelvis wo con DATE: 06/15/2023 17:00 INDICATION: Left lower quadrant pain TECHNIQUE: Computed tomography (CT) of the abdomen and pelvis was performed without intravenous contr ast. The dose-length product (DLP) was 282.14 mGy-cm. Automated exposure control and iterative recons truction technique were employed. COMPARISON: 08/15/2019 FINDINGS: Minimal dependent atelectasis is present in the lung bases. The heart size is normal. Cruz es of cholecystectomy are noted. The liver, spleen, pancreas, and adrenal glands are normal. The kidn eys are unremarkable. No pathologically enlarged abdominal or pelvic lymph nodes are identified. No f ree intraperitoneal gas or evidence of bowel obstruction. There is severe lumbar spondylosis. IMPRESSION: 1. No CT correlate for the patient's symptoms. Reviewed, dictated and finalized at location F. [employer] SECURITY DIRECTOR
== END 2023-06-15 16:14 | disposition home or self-care (01) ==
LOC: ANHIMG 16:13
PROVIDERS: PCP Family Medicine Adolescent Medicine; Visit Provider Family Medicine Adolescent Medicine
DX: R10.32 Left lower quadrant pain (principal)
CPT/HCPCS: 74176

== ENCOUNTER 2023-07-16 16:53 | Emergency (ER) | payer OTHER, SELFPAY ==
--- NOTE | ~2023-07-16 | CT_ITS ---
EXAMINATION: CT abdomen pelvis w con DATE: 07/16/2023 19:59 INDICATION: Left abdominal pain. Nausea and vomiting. TECHNIQUE: Computed tomography (CT) of the abdomen and pelvis was performed with 100 mL Omnipaque 350 intravenous contrast. Automated exposure control and iterative reconstruction technique were employe d. The dose-length product was 230.13 mGy-cm. COMPARISON: CT abdomen and pelvis 06/15/2023, 08/15/2019 FINDINGS: The visualized portions of the lung bases demonstrate mild atelectasis. No pleural effusion . The heart size is normal. No pericardial effusion. There is a 6 mm cyst in the liver. There are num erous chronic hypodense masses in the spleen measuring up to 13 mm, likely granulomatous disease. The re are changes of cholecystectomy. The pancreas, adrenal glands, and kidneys are normal. There is div erticulosis of the colon without evidence of diverticulitis. There are no dilated loops of bowel. The appendix is normal. There are no pathologically enlarged lymph nodes. There is no free intraperitone al fluid. The periuterine and left ovarian veins are enlarged, consistent with pelvic venous insuffic iency. There is severe lumbar spondylosis. There is a chronic compression fracture of T12. There is m ild chronic anterior wedging of T11 vertebral body. IMPRESSION: 1. Pelvic venous insufficiency. Reviewed, dictated and finalized at location E.
[2023-07-16 17:00] VITALS: BP 153/74; PULSE 64; RESP 20; TEMP 36.6; O2SAT 96
[2023-07-16 17:11] LABS: Basophils Percent Auto 0.4 % (0.2-1.2); Eosinophils Absolute Auto 0.1 K/mm3 (0-0.3); Eosinophils Percent Auto 0.9 % (0-4.4); Hematocrit 42.1 % (37.0-47.0); Hemoglobin 14.1 g/dL (12.0-15.0); Immature Granulocyte Absolute 0.03 K/mm3 (0.00-0.031); Immature Granulocyte Percent A 0.3 % (0-0.5); Lymphocytes Absolute Auto 2.71 K/mm3 (0.9-3.2); Mean Corpuscular HGB Conc 33.5 g/dl (32-36); Mean Corpuscular Hemoglobin 31.3 pg (26-34); Mean Corpuscular Volume 93.6 fl (80-100); Mean Platelet Volume 8.7 fl (7.4-10.4); Monocytes Absolute Auto 0.7 K/mm3 (0.1-0.6); Monocytes Percent Auto 7.2 % (2.6-8.5); Neutrophils Absolute Auto 5.8 K/mm3 (1.3-6.7); Neutrophils Percent Auto 62.2 % (45.5-73.1); Platelet Count Result 259 k/mm3 (150-375); Red Cell Distribution Width 13.2 % (11.5-14.5); White Blood Count 9.3 K/mm3 (4.5-10.0)
[2023-07-16 17:38] LABS: Alanine Aminotransferase 24 U/L (6-35); Albumin Level 4.5 g/dL (3.5-5.1); Alkaline Phosphatase 68 U/L (38-126); Anion Gap 3 mmol/L (4-12); Aspartate Amino Transferase 27 U/L (14-36); Bilirubin,Total 0.7 mg/dL (0.2-1.3); Blood Urea Nitrogen 18 mg/dL (7-17); Calcium 9.6 mg/dL (8.4-10.2); Carbon Dioxide 28 mmol/L (22-30); Chloride 107 mmol/L (98-107); Estimated Glomerular Filt Rate > 60; Glucose 107 mg/dL (65-110); Lipase 90 U/L (23-300); Sodium 138 mmol/L (137-145)
[2023-07-16 17:52] LABS: Appearance Urine Clear (Clear); Bilirubin Urine Negative (Negative); Blood Urine Negative (Negative); Color Urine Yellow (Yellow); Glucose Urine UA Negative (Negative); Ketones Urine Negative (Negative); Leukocyte Esterase Ur Negative LEU/UL (Negative); Nitrate Urine Negative (Negative); Protein Urine Negative (Negative); Specific Grav Ur 1.012 (1.001-1.035); Urobilinogen Urine 0.2 mg/dL (<2.0)
[2023-07-16 17:55] LABS: Add Urine Microscopic? NO
[2023-07-16 19:15] VITALS: BP 161/84; PULSE 67; RESP 16; O2SAT 97
--- NOTE | 2023-07-16 19:36 | ED.ABDPAIN ---
HPI - Abdominal Pain General Chief Complaint: Abdominal Pain Stated Complaint: left side abdominal pain Time Seen by Provider: 07/16/23 18:58 Source: patient Mode of arrival: ambulatory Limitations: no limitations History of Present Illness HPI narrative: This is a 72-year-old female who presents to the ED with chief complaint of left-sided abdominal pain ongoing intermittently for the past month. Reports that it is always on the left side and radiates from left lower quadrant to left upper quadrant. Describes as a throbbing, burning pain. Reports initially she had a yellow, mucousy stool and was seen by her PCP. She states they ordered a noncontrast CT scan and she was diagnosed with colitis. She took antibiotics and steroids with minimal relief. She has also taken Bentyl with minimal relief. States the pain is constant. Denies any recent diarrhea. Endorses nausea due to pain but no vomiting. Denies fevers, chills, chest pain, shortness of breath, urinary symptoms, flank pain, back pain. Endorses surgical history of cholecystectomy many years ago. Related Data Home Medications Medication Instructions Recorded Confirmed calcium carbonate 600 mg calcium 600 mg PO BID 08/06/20 06/29/23 (1,500 mg) tablet (Calcium) Allergies Allergy/AdvReac Type Severity Reaction Status Date / Time clarithromycin AdvReac Unknown GI upset Verified 06/29/23 14:45 tramadol AdvReac Unknown Unknown Verified 06/29/23 14:45 BEE STING Allergy Severe SHOCK Uncoded 06/29/23 14:45 macrobid AdvReac Intermediate Diarrhea Uncoded 06/29/23 14:45 Review of Systems Review of Systems: All systems as dictated in HPI [facility] Past Medical History Medical History Gout History of melanoma 2006 Hyperlipidemia Normal colonoscopy 09/04, Repeat 09/09 Surgical History Surgical History H/O repair of rotator cuff Right History of cholecystectomy 2015 History of esophagogastroduodenoscopy (EGD) 07/05 Gastritis Family History Family History Mother Carcinoma of colon Family history of malignant neoplasm Father Asthma Social History Social History Smoking status: Never smoker Alcohol intake: never Alcohol use details: rarely Substance use: never Substance use type: does not use Living arrangements: with family Occupation/Education: retired Gender identity (if verbalized by the patient): Female Sexual Orientation (if Verbalized by the Patient): Straight or Heterosexual Spiritual care concerns: No Agree to blood products: Yes Exam Narrative: GENERAL: Well-appearing, well-nourished, and in no acute distress. HEAD: Normocephalic, atraumatic. EYES: PERRLA and EOMI. ENT: Nares clear, no rhinorrhea or epistaxis. Mucous membranes moist. Oropharynx without tonsillar hypertrophy exudate or other lesions. NECK: Supple. No adenopathy or masses. CHEST: No respiratory distress. Clear to auscultation. No wheezes rales or rhonchi HEART: Regular rate and rhythm. No murmur heard. Normal peripheral pulses. ABDOMEN: Mild left lower and left upper quadrant tenderness. Soft, nondistended, normal active bowel sounds. Negative peritoneal signs. Negative flank tenderness. MSK: Normal range of motion. No edema. SKIN: Warm, dry, no rash. NEURO: Alert and oriented x3. No focal deficits. PSYCH: Normal mood and affect. Course Course Emergency Course: Re-evaluation : Patient is feeling improved overall. Discussed the findings of the CT scan. She feels comfortable going home and following up with her doctor. Vital Signs Vital signs: Vital Signs Temperature 97.8 F 07/16/23 17:00 Pulse Rate 64 07/16/23 17:00 Respiratory Rate 20 07/16/23 17:00 Blood Pressure 153/74 H
[2023-07-16] MEDS: SODIUM CHLORIDE 0.9% IV 1,000 ML 999 ML IV CONT (19:38)
[2023-07-16] MEDS: ONDANSETRON INJ 4 MG/2 ML VIAL IV PUSH (19:40)
[2023-07-16] MEDS: MORPHINE SULFATE (*CRX) 4 MG/ML INJ IV PUSH (19:41)
[2023-07-16] MEDS: ACETAMINOPHEN 500 MG TABLET 1000 MG PO (19:42)
== END 2023-07-16 21:00 | disposition home or self-care (01) ==
PROVIDERS: Emergency Medicine; Emergency Provider Physician Assistant; PCP Family Medicine Adolescent Medicine
DX: R10.32 Left lower quadrant pain (principal); R10.12 Left upper quadrant pain; E78.5 Hyperlipidemia, unspecified; Z85.820 Personal history of malignant melanoma of skin
CPT/HCPCS: 36415; 74177; 80053; 81001; 81003; 83690; 85025; 96361; 96374; 96375; 99284; A9270; J2270; J2405; J7030; Q9967

== ENCOUNTER 2023-08-22 07:00 | Outpatient (NON) | payer OTHER, SELFPAY | END 2023-08-22 07:01 | disposition home or self-care (01) | LOC: ANHLAB 08-23 08:24 | PROVIDERS: PCP Family Medicine Adolescent Medicine; Visit Provider Internal Medicine Gastroenterology | DX: K63.5 Polyp of colon (principal); Z80.0 Family history of malignant neoplasm of digestive organs | CPT/HCPCS: 88305 ==

== ENCOUNTER 2023-08-22 09:37 | Day surgery (SDC) | payer OTHER, SELFPAY ==
[2023-08-08 08:14] VITALS: BMI 23.3
[2023-08-08 14:30] VITALS: BMI 23.4
[2023-08-22 09:56] VITALS: BP 120/80; PULSE 77; RESP 16; TEMP 36.7; O2SAT 99
[2023-08-22] MEDS: LACTATED RINGERS 1,000 ML 150 ML IV CONT (09:59)
--- NOTE | 2023-08-22 10:45 | PM.HPGS ---
History of Present Illness History of Present Illness Consent: Risks, benefits, and alternatives have been discussed and questions answered. Patient agrees to proceed with procedure. Chief complaint: Left lower quadrant pain Narrative: Catia Carroll is a 72 year old female was being investigated for it she in bowel habits . She has had thepain since May.? states pain is constant.? describes it as ball like in the left lower quadrant that radiates up to left flank area.? Describes left flank area as a burning sensation with soreness when palpitation. When pain 1st started back in May states she had 3 days of diarrhea with yellow foul smelling stools. She reports associated queasiness and decreased appetite but relates it to the abdominal pain.? she denies any black or bloody stools. she denies any vomiting or fevers. ? CT scan 06/15/2023 without contrast showed no correlation for patient's symptoms. She was placed on Augmentin for possible colitis.? Diarrhea did resolve but had no improvement in abdominal pain.? She was then placed on a 5 day course of prednisone and dicyclomine with no change in abdominal pain.? When symptoms fail to improve she followed up at [facility] on July 16, 2023. ? CT scan of Abdomen and pelvis with contrast was obtained, had no significant abnormalities were noted. Review of Systems Review of Systems: All systems reviewed & are unremarkable except as noted in HPI and below PMFSH Past Medical History Medical History Gout History of melanoma 2006 Hyperlipidemia Normal colonoscopy 09/04, Repeat 09/09 Surgical History Surgical History H/O repair of rotator cuff Right History of cholecystectomy 2014 History of esophagogastroduodenoscopy (EGD) 07/05 Gastritis Family History Family History Mother Carcinoma of colon Family history of malignant neoplasm Father Asthma Social History Social History Smoking status: Never smoker Alcohol intake: never Alcohol use details: rarely Substance use: never Substance use type: does not use Living arrangements: with family Occupation/Education: retired Gender identity (if verbalized by the patient): Female Sexual Orientation (if Verbalized by the Patient): Straight or Heterosexual Spiritual care concerns: No Agree to blood products: Yes Meds Home Medications and Allergies Home Medications Medication Instructions Recorded Confirmed Type calcium carbonate (Calcium 600) 600 mg PO BID 08/06/20 08/22/23 History atorvastatin 20 mg tablet 20 mg PO DAILY 08/08/23 08/22/23 History epinephrine 0.3 mg/0.3 mL 0.3 mg IM DIRECTED PRN 08/08/23 08/22/23 History injection, auto-injector Anaphylaxis zolpidem 10 mg tablet 5 mg PO QHS PRN Sleep 08/08/23 08/22/23 History hyoscyamine sulfate 0.125 mg tablet 0.125 mg PO QID PRN abdominal 08/10/23 08/22/23 Rx discomfort #120 tabs Allergies Allergy/AdvReac Type Severity Reaction Status Date / Time bee venom protein (honey bee) Allergy Severe Anaphylaxis Verified 08/22/23 09:54 clarithromycin AdvReac Mild GI upset Verified 08/22/23 09:54 nitrofurantoin AdvReac Mild Diarrhea Verified 08/22/23 09:54 [From Macrobid] tramadol AdvReac Mild Gastrointestinal Verified 08/22/23 09:54 Upset Vital Signs Vital Signs - 24 hr 08/22/23 09:56 Temperature 36.7 C Pulse Rate 77 Respiratory Rate 16 Blood Pressure 120/80 Pulse Oximetry 99 Oxygen Delivery Room Air Exam Const: General: alert Orientation/consciousness: patient oriented x3 Resp: Auscultation: clear to auscultation bilaterally Cardio: Rhythm: regular rhythm GI: GI Palp: Yes Soft to palpation and No Tenderness to palpation present (GI) Neuro: General: patient oriented x3
--- NOTE | 2023-08-22 10:50 | WPDANESEPPF ---
Anes - Initial Pre Proc Eval Procedure: Operation Date: 08/22/23 11:30 Proposed Procedures p Diagnostic Colonoscopy - Eh Funez MD Date/Time: 08/22/23 10:50 Surgeon: Eh Funez MD Pre Op Diagnosis: Left lower quadrant pain Patient Data Age: 72 Gender: F Height: 1.63 m Weight: 58.4 kg Last Vital Signs Temp 36.7 C 08/22/23 09:56 Pulse 77 08/22/23 09:56 Resp 16 08/22/23 09:56 BP 120/80 08/22/23 09:56 Pulse Ox 99 08/22/23 09:56 O2 Del Method Room Air 08/22/23 09:56 Allergies Allergy/AdvReac Type Severity Reaction Status Date / Time bee venom protein (honey bee) Allergy Severe Anaphylaxis Verified 08/22/23 09:54 clarithromycin AdvReac Mild GI upset Verified 08/22/23 09:54 nitrofurantoin AdvReac Mild Diarrhea Verified 08/22/23 09:54 [From Macrobid] tramadol AdvReac Mild Gastrointestinal Verified 08/22/23 09:54 Upset Home Medications Medication Instructions Recorded Confirmed Type calcium carbonate (Calcium 600) 600 mg PO BID 08/06/20 08/22/23 History atorvastatin 20 mg tablet 20 mg PO DAILY 08/08/23 08/22/23 History epinephrine 0.3 mg/0.3 mL 0.3 mg IM DIRECTED PRN 08/08/23 08/22/23 History injection, auto-injector Anaphylaxis zolpidem 10 mg tablet 5 mg PO QHS PRN Sleep 08/08/23 08/22/23 History hyoscyamine sulfate 0.125 mg tablet 0.125 mg PO QID PRN abdominal 08/10/23 08/22/23 Rx discomfort #120 tabs Patient hx anesthesia problems: none Family hx anesthesia problems: none Results Review: All pre-operative results and documents have been reviewed as part of the pre-operative evaluation. [facility] Past Medical History Medical History Gout History of melanoma 2006 Hyperlipidemia Normal colonoscopy 09/04, Repeat 09/09 Surgical History Surgical History H/O repair of rotator cuff Right History of cholecystectomy 2015 History of esophagogastroduodenoscopy (EGD) 07/05 Gastritis Family History Family History Mother Carcinoma of colon Family history of malignant neoplasm Father Asthma Social History Social History Smoking status: Never smoker Alcohol intake: never Alcohol use details: rarely Substance use: never Substance use type: does not use Living arrangements: with family Occupation/Education: retired Gender identity (if verbalized by the patient): Female Sexual Orientation (if Verbalized by the Patient): Straight or Heterosexual Spiritual care concerns: No Agree to blood products: Yes Anes - Eval Final PreProcedure Day of Procedure 08/22/23 10:50 Patient weight: normal Heart: regular rate and rhythm Lungs: clear to auscultation Airway: Mallampati scale class II Neurological: alert and oriented Last oral intake: >/= 8 hours ASA classification: II Emergent: no Anesthetic plan: proceed Anesthesia type and monitoring: general GIVS and standard monitoring Results Review: All pre-operative results and documents have been reviewed as part of the pre-operative evaluation. Informed Consent: The patient's anesthetic plan and its attendant risks and benefits were discussed with the patient/family/POA. Questions were solicited and answers provided to the satisfaction of the patient/family/POA.
[2023-08-22 11:45] VITALS: BP 107/68; PULSE 73; RESP 18; O2SAT 97
[2023-08-22 11:55] VITALS: BP 106/71; PULSE 60; RESP 16; O2SAT 99
--- NOTE | 2023-08-22 11:56 | WPDANESPN ---
Anes - Prog Note Post-Op Date/Time: 08/22/23 11:56 Cardiovascular status: normal Respiratory status: normal Airway patency: baseline Mental status: baseline Post-Op hydration status: normal Vital Signs: Last Vital Signs Temp 36.7 C 08/22/23 09:56 Pulse 77 08/22/23 09:56 Resp 16 08/22/23 09:56 BP 120/80 08/22/23 09:56 Pulse Ox 99 08/22/23 09:56 O2 Del Method Room Air 08/22/23 09:56 Pain Score (VAS): 0/10 I/O: Intake & Output 08/21/23 08/22/23 08/22/23 23:59 07:59 15:59 Intake Total 300 Balance 300 Patient Feedback: Patient satisfied with anesthetic care.
[2023-08-22 12:05] VITALS: BP 110/68; PULSE 59; RESP 16; O2SAT 99
== END 2023-08-22 12:20 | disposition home or self-care (01) ==
PROVIDERS: PCP Family Medicine Adolescent Medicine; Visit Provider Internal Medicine Gastroenterology
PROC: 0DJD8ZZ Inspection of Lower Intestinal Tract, Via Natural or Artificial Opening Endoscopic (ICD-10-PCS; CPT 45378; principal; 2023-08-22 11:30)
DX: R19.4 Change in bowel habit (principal); D12.4 Benign neoplasm of descending colon; K57.30 Diverticulosis of large intestine without perforation or abscess without bleeding; K64.8 Other hemorrhoids
CPT/HCPCS: 45380

== ENCOUNTER 2023-12-22 12:32 | Outpatient (CLI) | payer OTHER, SELFPAY ==
--- NOTE | ~2023-12-22 | XR_ITS ---
Right Knee Technique: AP, lateral, and sunrise views were obtained. Clinical History: Pain Findings: No fracture or dislocation is seen. Osseous alignment is anatomic. Joint spaces are preserv ed without degenerative or erosive change. Chondrocalcinosis of the menisci noted. No joint effusion is seen. Impression: No fracture or dislocation. Chondrocalcinosis of the menisci. Reviewed, dictated and finalized at location M. Impression: No fracture or dislocation. Chondrocalcinosis of the menisci.
== END 2023-12-22 12:33 | disposition home or self-care (01) ==
PROVIDERS: PCP Family Medicine Adolescent Medicine; Visit Provider Family Medicine
DX: M11.261 Other chondrocalcinosis, right knee (principal)
CPT/HCPCS: 73564

== ENCOUNTER 2024-01-09 09:30 | Outpatient (CLI) | payer OTHER, SELFPAY ==
--- NOTE | ~2024-01-09 | MR_ITS ---
EXAMINATION: MR knee RT wo/w con DATE: 01/09/2024 10:31 INDICATION: Right knee pain. TECHNIQUE: Magnetic resonance imaging (MRI) of the right knee was performed without and with 12 mL Mu ltiHance intravenous contrast. COMPARISON: Right knee radiographs 12/22/2023 FINDINGS: Medial compartment: Medial meniscus is normal. There is shallow partial-thickness cartilage loss of tibial condyle and fe moral condyle with mild subchondral edema-like marrow signal intensity. There are tiny osteophytes. Lateral compartment: There is a vertical tear of anterior horn of lateral meniscus. There is cartilage surface irregularit y of femoral condyle and tibial condyle. Patellofemoral compartment: There is full-thickness cartilage loss of patellar medial facet and median ridge. There is mild subch ondral edema-like marrow signal intensity in the patella. There is full-thickness cartilage loss of m edial trochlea with mild subchondral edema-like marrow signal intensity. Osteophytes are noted. Ligaments and tendons: The anterior and posterior cruciate ligaments are normal. There are changes of prior sprains of media l collateral ligament and fibular collateral ligament characterized by thickening and increased signa l intensity proximally. There is mild patellar tendinopathy. Fluid: There is a moderate-sized knee joint effusion with synovitis. There is a large Mitchell's cyst with syno vitis. IMPRESSION: 1. Severe chondrosis of patellofemoral compartment and mild chondrosis of medial and lateral compartm ents. 2. Tear of lateral meniscus. 3. Moderate-sized knee joint effusion with synovitis. 4. Large Mitchell's cyst with synovitis. Reviewed, dictated and finalized at location A. IMPRESSION: 1. Severe chondrosis of patellofemoral compartment and mild chondrosis of media l and lateral compartments. 2. Tear of lateral meniscus. 3. Moderate-sized knee joint effusion with synovitis. 4. Large Mitchell's cyst with synovitis.
== END 2024-01-09 09:31 | disposition home or self-care (01) ==
LOC: MICIMG 09:30
PROVIDERS: PCP Family Medicine; Visit Provider Family Medicine
DX: S83.281D Other tear of lateral meniscus, current injury, right knee, subsequent encounter (principal); X58.XXXD Exposure to other specified factors, subsequent encounter; M71.21 Synovial cyst of popliteal space [Baker], right knee; M25.461 Effusion, right knee
CPT/HCPCS: 73723; A9577

== ENCOUNTER 2024-02-27 07:41 | Outpatient (RCR) | payer OTHER, SELFPAY ==
--- NOTE | 2024-02-27 08:59 | PTOPEVDC ---
Assessment and note entered by Nicolette Gibbons, PT Thank you for referring Catia Carroll to [facility].? An evaluation has been completed. No further treatment is needed. Evaluation/ discharge Information Assessment Status Evaluation/ discharge Other ICD-10 Condition Codes ( S83.281AR knee lateral meniscal tear PT) Subjective Information played pickle ball one day, no issues, then the next day when walking outside in the yard, knee tightened and pain; problems walking, saw primary dr, had MRI, to ortho dr; had injection and is better now; no history of knee pain; MRI- R knee lateral meniscal tear, Mitchell's cyst; severe chondrosis PF; Activity: very active, walk 3 miles or pickle ball daily; NOW- not played pickle ball, have returned to walking 3 miles with soreness of knee; have not tried running Reported Pain Level Pain Score Self Report R knee Additional Pain Score Comments pain range in past few days staying 2/10 aching; decrease pain: ice and over the counter meds improved since injury, resting and had injection no issues with sleeping Assessment PT Clinical Summary Parisa has the diagnosis of R knee lateral meniscal tear. Onset of pain was end of November- not able to tolerate walking, and knee pain is less now. She has been doing supine and sitting leg exercises and returned to walking 3 miles at time for fitness. She has not returned to pickle ball or running. has discussed arthroscopy surgery with her if the knee continues to give her pain. She wants to avoid surgery. With the evaluation: she has good flexibility of R hip, knee and ankle, with decreased strength due to inactivity since onset of knee pain. Orders are for 1 visit for HEP; pt is very motivated and has been progressing her activity. Parisa was educated on HEP, use of green theraband for resistance, walking on treadmill side R, side L and backwards; instructions to increase activity as tolerated, monitoring her pain level. She has a good understanding of HEP and progression of activity. Discharge PT. She is to continue with her HEP and activity progression as tolerated. Plan of Care PT Services Indicated No
== END 2024-02-27 12:36 | disposition home or self-care (01) ==
LOC: ANHPT 07:41
PROVIDERS: PCP Family Medicine; Visit Provider Orthopaedic Surgery
DX: S83.281D Other tear of lateral meniscus, current injury, right knee, subsequent encounter (principal)
CPT/HCPCS: 97110; 97161; 97530

== ENCOUNTER 2024-07-02 09:48 | Outpatient (CLI) | payer OTHER, SELFPAY ==
--- NOTE | ~2024-07-02 | US_ITS ---
RIGHT LOWER EXTREMITY VENOUS ULTRASOUND Ordering provider: Tawanda Gregg DO History: . M79.661 - Pain in right lower leg . Comparison: None. FINDINGS: --COMMON FEMORAL: Patent and free of thrombus. Normal compressibility, phasic flow and augmentation. --PROXIMAL SUPERFICIAL FEMORAL: Patent and free of thrombus. Normal compressibility, phasic flow and augmentation. --DISTAL SUPERFICIAL FEMORAL: Patent and free of thrombus. Normal compressibility, phasic flow and au gmentation. --POPLITEAL: Patent and free of thrombus. Normal compressibility, phasic flow and augmentation. --POSTERIOR TIBIAL: Patent and free of thrombus. Normal compressibility, phasic flow and augmentation . IMPRESSION: Negative right lower extremity venous US. No deep vein thrombosis. Reviewed, dictated and finalized at location A.
--- OUTSIDE RECORDS SUMMARY | 2024-07-02 10:50 | XMS_ITS | Continuity of Care Document ---
Author Organization [facility] Address [address] [facility] [address] [place] [address] Phone Care Team Providers Care Chaperone Name Role Phone Janeth Schilling Unavailable Unavailable Procedures Procedure Date Remove Foreign Body From Eye Advance Directives Directive Yes / No Effective Date File Name No Information Encounters Encounter Description Practice Location Reason(s) For Visit Diagnoses Date Provider Providers Copied on Encounter [facility], [address], [place], [place], [id number], [place] tel:[phone] [facility] No Information [address] Tonie Fowler. [address] , [address], [place], [address], [place]. tel:[phone] Family History Family Member Type Diagnosis Age At Onset No Information Payers Payer name Insurance type Covered green party ID Authoriza tion(s) No Information Social History Type Description Quantity Date Captured Comments Sex Female Smoking Status No Information Chief Complaint And Reason For Visit No Information Reason For Referral Reason For Referral No Information History Of Present Illness Encounter Date Complaint History Of Prese nt Illness No Information Functional Status Date Functional Assessmen t No Information Instructions Date Instruction Additional Infor mation No Information Assessments Type Assessment Date No Information Patient Care Teams Name Effective Dates (start - stop) Status Members No Information
== END 2024-07-02 09:49 | disposition home or self-care (01) ==
PROVIDERS: PCP Family Medicine; Visit Provider Family Medicine
DX: M79.661 Pain in right lower leg (principal)
CPT/HCPCS: 93971

== ENCOUNTER 2024-08-12 09:41 | Outpatient (CLI) | payer OTHER, SELFPAY ==
--- NOTE | ~2024-08-12 | MM_ITS ---
EXAMINATION: MM screening jose j BI w eryn HISTORY: Screening mammogram TECHNIQUE: Craniocaudal and mediolateral oblique 3-D tomosynthesis images were obtained and synthetic 2-D images were generated. CAD analysis was submitted and interpreted. COMPARISON: 05/29/2023, 04/27/2022, 04/07/2021 BREAST PARENCHYMAL COMPOSITION:Not Dense. There are scattered areas of fibroglandular density. FINDINGS: Mass at the lower, inner right breast is decreased in size from prior exam. No suspicious m ass, calcification, or architectural distortion are identified in either breast to suggest malignancy . There has been no suspicious interval change. IMPRESSION: No mammographic evidence of malignancy. Recommend routine screening mammography in one year. BI-RADS Category 2: Benign finding(s). Reviewed, dictated and finalized at [facility].
--- OUTSIDE RECORDS SUMMARY | 2024-08-12 10:42 | XMS_ITS | Continuity of Care Document ---
Author Organization [facility] Address [address] [facility] [[email or web address]] [address] [place] [address] Phone Care Team Providers Care Rehabilitation Case Coordinator Name Role Phone Janeth Schilling Unavailable Unavailable Procedures Procedure Date Remove Foreign Body From Eye Advance Directives Directive Yes / No Effective Date File Name No Information Encounters Encounter Description Practice Location Reason(s) For Visit Diagnoses Date Provider Providers Copied on Encounter [facility], [address], [place], [place], [id number], [place] tel:[phone] [facility] No Information 3-[address] Tonie Fowler. [address] , [address], [place], [address], [place]. tel:[phone] Family History Family Member Type Diagnosis Age At Onset No Information Payers Payer name Insurance type Covered republican ID Authoriza tion(s) No Information Social History [...]
== END 2024-08-12 09:42 | disposition home or self-care (01) ==
LOC: ANHIMG 09:44
PROVIDERS: PCP Family Medicine; Visit Provider Family Medicine Adolescent Medicine
DX: Z12.31 Encounter for screening mammogram for malignant neoplasm of breast (principal)
CPT/HCPCS: 77063; 77067

== ENCOUNTER 2025-04-15 08:15 | Outpatient (CLI) | payer OTHER, SELFPAY ==
--- NOTE | ~2025-04-15 | CT_ITS ---
EXAMINATION: CT abdomen pelvis wo con DATE: 04/15/2025 08:48 INDICATION: Unspecified abdominal pain. TECHNIQUE: Computed tomography (CT) of the abdomen and pelvis was performed without intravenous contrast. Automated exposure control and iterative reconstruction technique were employed. The dose-length product was 238.36 mGy-cm. COMPARISON: CT abdomen and pelvis 07/16/2023 FINDINGS: The visualized portions of the lung bases demonstrate mild atelectasis. No pleural effusion. The heart size is normal. No pericardial effusion. The liver and spleen are normal. There are changes of cholecystectomy. The pancreas, adrenal glands, and kidneys are normal. There is no urolithiasis. There is diverticulosis of the colon without evidence of diverticulitis. The appendix is normal. There are no dilated loops of bowel. There are no pathologically enlarged lymph nodes. There is no free intraperitoneal fluid. There is severe lumbar spondylosis. There is a chronic compression fracture of T12. There is mild chronic anterior wedging of T11. IMPRESSION: 1. No etiology for the patient's symptoms. Reviewed, dictated and finalized at location E. HER [facility]ATOR
== END 2025-04-15 08:16 | disposition home or self-care (01) ==
PROVIDERS: PCP Family Medicine; Visit Provider Nurse Practitioner
DX: R10.9 Unspecified abdominal pain (principal)
CPT/HCPCS: 74176